=== PATIENT | female | born 1985 | race Caucasian/White ===

== ENCOUNTER 2021-08-20 14:09 | Emergency (ER) | payer BC, SELFPAY ==
[2021-08-20 14:17] VITALS: BP 114/74; PULSE 83; RESP 16; TEMP 37.1; O2SAT 100
--- NOTE | 2021-08-20 14:24 | ED.SKABFB ---
HPI - Skin/Abscess/Foreign Bdy General Chief complaint: Skin/Abscess/Foreign Body Stated complaint: Swelling Lt Hand Time Seen by Provider: 08/20/21 14:25 History of Present Illness HPI narrative: Anabel Mar is a 35 yo female with PMH ADHD, acne, who comes to express care with bee sting to L fifth metacarpal Wednesday which is swollen, tender. Patient is states that feels mildly warm and went to saw his shank sorter who said it could be cellulitic; presently looks a little red and mildly swollen Related Data Home Medications Medication Instructions Recorded Confirmed atomoxetine 80 mg capsule 1 cap PO DAILY 08/20/21 08/20/21 spironolactone 50 mg tablet 1 tablet PO DAILY 08/20/21 08/20/21 Allergies Allergy/AdvReac Type Severity Reaction Status Date / Time No Known Allergies Allergy Verified 08/20/21 14:13 Review of Systems Review of Systems: CONSTITUTIONAL: Denies fever, chills, sweats. EYES: Denies visual changes, redness, discharge. ENT: Denies rhinorrhea, congestion, sore throat, otalgia. CARDIOVASCULAR: Denies chest pain, palpitations, edema. RESPIRATORY: Denies dyspnea, wheezing, cough GASTROINTESTINAL: Denies abdominal pain, nausea, vomiting, diarrhea. GENITOURINARY: Denies dysuria, hematuria, abnormal discharge SKIN: Denies rash or itching. Left second finger mildly swollen mild erythema NEUROLOGIC: Denies numbness, or focal weakness. PSYCHIATRIC: Denies anxiety or depression. PMFSH Past Medical History Medical History Acne ADD (attention deficit disorder) Social History Social History (Updated 08/20/21 @ 14:36 by Dayanara Galeas CNP) Smoking status: Never smoker Comments At time of signature, I agree with nursing past medical, surgical, social and family history. There is no relevant family history pertinent to the presenting complaint. Exam Narrative: GENERAL: This is a well-nourished, well-developed patient, in mild distress. HEAD: normocephalic, atraumatic. EYES:. Sclera clear/white. Vision is grossly intact. EARS: External ears normal, Hearing grossly intact. NOSE: External nose normal without nasal discharge, nares without redness, no rhinorrhea. THROAT: Mucous membranes moist, NECK: Neck supple, non-tender CARDIOVASCULAR: Regular rate and rhythm without murmurs, gallops, or rubs. RESPIRATORY: Clear to auscultation. Breath sounds equal bilaterally. No wheezes, rales, or rhonchi. GASTROINTESTINAL: Not done SKIN: warm, intact with mild edema mild erythema of second finger left hand has good range of motion slightly warm to touch, no signs of infection NEURO: awake, alert, and oriented to person, place and time. There were no obvious focal neurologic abnormalities. Steady gait EXTREMITIES: Normal range of motion. BACK: Nontender without deformity Course Course Emergency Course: Patient comes with a wasp sting from Wednesday, left second finger is mildly swollen with some erythema Patient given 60 mg of prednisone; however take a Medrol Dosepak encouraged to continue Benadryl and famotidine to offset histamine reaction with and itchiness of lesion Follow-up with primary care Level of Care: Express Care Visit Vital Signs Vital signs: Vital Signs Temperature 98.8 F 08/20/21 14:17 Pulse Rate 83 08/20/21 14:17 Respiratory Rate 16 08/20/21 14:17 Blood Pressure 114/74 08/20/21 14:17 Pulse Oximetry 100 08/20/21 14:17 Oxygen Delivery Room Air 08/20/21 14:17 Temperature 98.8 F 08/20/21 14:17 Pulse Rate 83 08/20/21 14:17 Respiratory Rate 16 08/20/21 14:17 Blood Pressure 114/74 08/20/21 14:17 Pulse Oximetry 100 08/20/21 14:17 Oxygen Delivery Room Air 08/20/21 14:17 MDM - Skin/Abscess/Foreign Bdy Differential Diagnosis Differential diagnosis: Likely abscess of skin or subcutaneous tissue, urticaria, cellulitis, eczema, insect bites, contact dermatitis and other Critical Care Time
[2021-08-20] MEDS: predniSONE 20 MG TABLET 60 MG PO (14:37)
== END 2021-08-20 14:41 | disposition home or self-care (01) ==
PROVIDERS: Emergency Provider Nurse Practitioner; PCP Internal Medicine
DX: T63.461A Toxic effect of venom of wasps, accidental (unintentional), initial encounter (principal); F98.8 Other specified behavioral and emotional disorders with onset usually occurring in childhood and adolescence
CPT/HCPCS: 99213; G0463; J7512

== ENCOUNTER 2024-05-02 08:09 | Emergency (ER) | payer OTHER, SELFPAY ==
--- OUTSIDE RECORDS SUMMARY | 2024-05-02 08:19 | XMS_ITS | Clinical Summary ---
Author Organization [facility] Address [address] [place] [address] Care Team Providers Care Retort Loader Name Role Phone Eladia Bean Primary Care Provider [phone] Allergies No known active allergies Medications dextroamphetami ne-amphetamine XR (ADDERALL XR) 10 mg 24 hr capsule Take 1 capsule (10 mg total) by mouth every morning 30 capsule 5 Active dextroamphetami ne-amphetamine XR (ADDERALL XR) 10 mg 24 hr capsule Take 1 capsule (10 mg total) by mouth every morning 30 capsule 5 04/13/19 25 Discontinu ed(Reorder ) Active Problems Problem Noted Date Diagnosed Date Chronic left-sided low back pain without sciatic a 01/06/2024 Assessment & Plan (01/06/2024 1:30 PM LEASING PROPERTY MANAGER): Chronic. Currently uncontrolled and worsening over the last 6 weeks. Suspect macular pain possible muscular origin with now chronic pain. - Lumbar spine x-ray ordered, further management pending results - Recommend physical therapy, referral provided - Can take ibuprofen if needed - Continue stretching, heat Thyroid nodule 06/15/2023 Overview (06/15/2023): Per US 06/14/23: 0.89 cm - TI-RADS 4 Nodules 1.0 cm follow up at 1, 2, 3 and 5 years recommended, for nodules 1.5 cm FNA recommended. Assessment & Plan (01/06/2024 1:26 PM LEASING PROPERTY MANAGER): Per US 04/2023: 0.89 cm - TI-RADS 4 Nodules 1.0 cm follow up at 1, 2, 3 and 5 years recommended. Next US due 04/2023, order given. Annual physical exam 04/14/2023 Overview (04/14/2023): PMH:04/14/23 Last pap: 04/14/23 Last mammogram: 04/14/23 Last colonoscopy/cologuard: Last Hep C: Last tdap: 09/2015 Last Prevnar/pneumovax: Last Shingrix: Last eye exam: Assessment & Plan (04/14/2023 11:08 AM LEASING PROPERTY MANAGER): PMH:04/14/23 Last pap: 04/14/23 Last mammogram: 04/14/23 Last colonoscopy/cologuard: Last Hep C: Last tdap: 09/2015 Last Prevnar/pneumovax: Last Shingrix: Last eye exam: BMI 22.0-22.9, adult 04/14/2023 Assessment & Plan (03/15/2024 7:30 AM LEASING PROPERTY MANAGER): BMI Follow-up includes: education provided. Assessment & Plan (01/06/2024 1:27 PM LEASING PROPERTY MANAGER): Congratulated patient on lifestyle changes with increased exercise and diet, 20 lb weight loss. Assessment & Plan (04/14/2023 11:09 AM LEASING PROPERTY MANAGER): Exercise 5 days a week, 30 mins per day recommended. Eat a heart healthy diet consisting of good, healthy protein (eggs, nuts, peanut butter, chicken, fish, turkey, less pork/beef), lots of vegetables, less carbohydrates and less sugar. Attention deficit disorder (ADD) without hyperac tivity 09/21/2022 Assessment & Plan (03/15/2024 7:29 AM LEASING PROPERTY MANAGER): Chronic. Uncontrolled. Discussed options for treatment and we will start Adderall, risks and benefits discussed. Script sent for Adderall XR 10 mg every morning. She will update me in the next week on how her symptoms her doing. Discussed need to be seen every 6 months, 1 of these must be in person in the office. She will also complete a urine drug screen at her next visit and we will sign the controlled substance contract. Discussed that this medication is a controlled substance, do not lose it or give it to anyone else. Assessment & Plan (04/14/2023 11:08 AM LEASING PROPERTY MANAGER): Chronic. Stable without medication. Patient had nausea with Strattera though it did control her symptoms. Has never wanted to be on stimulant medication. Diagnosed by previous PCP, notes reviewed. Resolved Problems Problem Noted Date Diagnosed Date Resolved Date Generalized anxiety disorder 01/06/2017 04/14/2023 Encounters Date Type Department Care Team Description 03/15/2024 2:07 PM LEASING PROPERTY MANAGER - 03/15/2024 11:59 PM LEASING PROPERTY MANAGER Hospital Encounter [facility] Ultrasound [address] [place] [address] Thyroid nodule Discharge Disposition: Discharge to home or self care 03/15/2024 10:45 AM LEASING PROPERTY MANAGER Office Visit [facility] Obstetrical Gynecology [address] [place] [phone] Rodney Multani MD Abnormal uterine bleeding (AUB) 03/15/2024 7:30 AM LEASING PROPERTY MANAGER Telemedicine [facility] Family Medicine [address] [phone] Eladia Bean PA 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); BMI 22.0-22.9, adult from Last 3 Months Immunizations Immunization Administration Dates Next Due Influenza, Quadrivalent, Rec ombinant, Egg Free, Preservative Free, Intramuscular 12/17/2021,12/16/2020 Influenza, Quadrivalent, Spl it, Intramuscular 11/29/2017 Influenza, Quadrivalent, Spl it, Preservative Free, Intramuscular 11/07/2015 Influenza, Trivalent, Cell Culture-based MDCK, Preservative Free, Antibiotic Free, Intramuscular 12/06/2016 Influenza, Unspecified 11/29/2022(Deferred: Poly ent decision) Pfizer SARS-CoV-2 Monovalent Vaccination (12+ Yrs) PURPLE 03/27/2020,03/06/2020 Tdap 10/07/2015,04/15/2015,03/10/2013 Surgical History Surgery Date Site/Laterality Comments DILATION AND CURETTAGE OF UTERUS SECTION TONSILLECTOMY ABLATION 12/2018 Medical History Medical History Date Comments History of meningitis Generalized anxiety disorder 01/06/2017 Family History Medical History Relation Name Comments No Known Problems Brother Hypertension Father No Known Problems Maternal Grandfather No Known Problems Maternal Grandmother Depression Mother Bone cancer Paternal Grandfather Diabetes Paternal Grandmother Breast cancer Neg Hx Colon cancer Neg Hx Ovarian cancer Neg Hx Relation Name Status Comments Brother Alive Father Alive Maternal Grandfather Alive Maternal Grandmother Alive Mother Alive Paternal Grandfather Paternal Grandmother Social History Tobacco Use Types Packs/Day Years Used Date Smoking Tobacco: Never Smokeless Tobacco: Never Tobacco Cessation:Counseling Given: Not Answered Alcohol Use Standard Drinks/Week Comments Yes 0 (1 standard drink = 0.6 oz pur e alcohol) social Humiliation, Afraid, Rape, and Kick questionnair e Answer Date Recorded Fear of Current or Ex-Partner No Emotionally Abused No 06/21/2018 Physically Abused No 06/21/2018 Sexually Abused No 06/21/2018 AUDIT-C Answer Date Recorded Q1: How often do you have a drink containing alc ohol? Monthly or less 01/06/2024 Q2: How many drinks containi ng alcohol do you have on a typical day when you are drinking? 1 or 2 01/06/2024 Q3: How often do you have si x or more drinks on one occasion? Never 01/06/2024 PHQ-2 Answer Date Recorded PHQ-2 Total Score (If total score is 3 or more points, staff should administer the PHQ-9) 0 01/06/2024 [facility] - Occupational Stress Questionnaire Answer Date Recorded Feeling of Stress Only a little 06/21/2018 Exercise Vital Sign Answer Date Recorde d Days of Exercise per Week 2 days 2018 Minutes of Exercise per Session 60 min 06/21/2018 Comments No Sex and Gender Information Value Date Recorded Sex Assigned at Not on file Legal Sex Female 2:55 AM LEASING PROPERTY MANAGER Gender Identity Not on file Sexual Orientation Not on file 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 on file Not on file Not on fi le Obstetrics History Para Term AB IAB SAB Ectopic Multiple Livin g Live Births 4 3 3 1 1 3 3 Date Outcome GA Total Labor Labor/2nd/3rd Weight Sex Type Anes PTL Rachele A1 A5 Name Clin Term Term Term SAB Last Filed Vital Signs Vital Sign Reading Time Taken Comments Blood Pressure 110/60 03/15/2024 10:40 AM LEASING PROPERTY MANAGER Pulse 78 01/06/2024 12:33 PM LEASING PROPERTY MANAGER Temperature 36.8 C (98.2 F) 01/06/2024 12:33 PM LEASING PROPERTY MANAGER Respiratory Rate 16 01/06/2024 12:33 PM LEASING PROPERTY MANAGER Oxygen Saturation 98% 01/06/2024 12:33 PM LEASING PROPERTY MANAGER Inhaled Oxygen Concentration - - Weight 62.6 kg (138 lb) 03/15/2024 10:40 AM LEASING PROPERTY MANAGER Height 161.3 cm (5' 3.5 ) 03/15/2024 10:40 AM CS T Body Mass Index 24.06 03/15/2024 10:40 AM LEASING PROPERTY MANAGER Plan of Treatment Health Maintenance Due Date Last Done Comments Hepatitis C Screening 1986 Hepatitis B Screening 2004 Covid-19 Vaccine ( season) 2023 12/18/2020, 03/27/2020, 03/06/2020 Influenza Vaccine (#1) 2023 , 12/16/2020, 11/29/2017, Additional history exists Regular Well Visit/Exam 18-64 04/14/2024 04/14/2023, 12/17/2021, 12/16/2020, Additional history exists Depression Screening 01/05/2025 01/06/2024, 04/14/2023, 04/14/2023, Additional history exists DTaP/Tdap/Td Vaccine (4 - Td or Tdap) 10/06/2025 10/07/2015, 04/15/2015, 03/10/2013 Cervical Cancer Screening 04/14/2028 04/14/2023, HPV Vaccines Aged Out No longer eligi ble based on patient's age to complete this topic Pneumococcal vaccine <65 Aged Out No longer eligible based on patient's age to complete this topic Varicella Vaccines Discontinued Procedures Procedure Name Priority Date/Time Associated Diagnosis Comments US THYROID Schedule Routine, Read Routine (OP Routine) 03/15/2024 2:32 PM LEASING PROPERTY MANAGER Thyroid nodule PAP AND HPV, REFLEX TO HPV GENOTYPES Routine 04/14/2023 12:39 PM LEASING PROPERTY MANAGER Screening for cervical cancer from Last 3 Months or Most Recently Relevant to Health Maintenance Results * US Thyroid (03/15/2024 2:32 PM LEASING PROPERTY MANAGER) Anatomical Region Laterality Modality Head and Neck N/A Ultrasound 03/16/2024 7:45 AM LEASING PROPERTY MANAGER Narrative 03/16/2024 7:47 AM LEASING PROPERTY MANAGER EXAM DESCRIPTION: US THYROID REASON FOR STUDY: thryoid nodule TECHNIQUE: Ultrasound of the thyroid was performed with grayscale and color doppler. COMPARISON: Thyroid ultrasound 06/14/2023 FINDINGS: RIGHT: The right thyroid lobe measures 4.4 x 1.6 x 1.7 cm. The right thyroid lobe is normal in echotexture. LEFT: The left thyroid lobe measures 4.3 x 1.5 x 1.8 cm. The left thyroid lobe is normal in echotexture. Nodule 1: Solid hypoechoic nodule in the mid to lower thyroid lobe measuring 0.7 x 0.9 x 0.5 cm. Smooth margins. Wider than tall. No echogenic foci. This measured 0.8 x 0.9 x 0.4 cm on 06/14/2023. ISTHMUS: The isthmus measures 1.7 mm in AP dimension. The isthmus is normal in echotexture. VASCULARITY: Normal. OTHER: No other significant finding. IMPRESSION: TI-RADS 4 left thyroid nodule measuring 0.9 cm. This does not meet criteria for FNA or follow-up ACR TI-RADS Risk Category: 4 REFERENCE: According to the ACR Thyroid Imaging, Reporting and Data System (TI-RADS): White Paper of the ACR TI-RADS Committee Jun, 2016 recommendations regarding the management of thyroid nodules are as follows: 1. TI-RADS 1: Risk of malignancy <2%, no FNA or follow up required. 2. TI-RADS 2: Risk of malignancy <2%, no FNA or follow up required. 3. TI-RADS 3: Risk of malignancy 2%-5%. Nodules 1.5 cm or greater follow up at 1, 3 and 5 years recommended, for nodules 2.5 cm or greater FNA recommended. 4. TI-RADS 4: Risk of malignancy 5%-20% Nodules 1.0 cm or greater follow up at 1, 2, 3 and 5 years recommended, for nodules 1.5 cm or greater FNA recommended 5. TI-RADS 5: Risk of malignancy >20%. Nodules 0.5 cm or greater annual follow up for 5 years recommended, for nodules 1.0 cm or greater FNA recommended. The ACT TI-RADS committee recommends targeting no more than two nodules for FNA. If three or more nodules meet criteria for FNA, the two with the most suspicious appearance based on ACR TI-RADS points should be sampled. THIS IS AN ELECTRONICALLY VERIFIED FINAL REPORT 03/16/2024 7:47 AM - Electronically signed by Montrell Hope M.D. JR: Report ID: [id number] Reading Location: [place] [address] Procedure Note Montrell Hope MD - 03/16/2024 EXAM DESCRIPTION: US THYROID REASON FOR STUDY: thryoid nodule TECHNIQUE: Ultrasound of the thyroid was performed with grayscale andcolor doppler. COMPARISON: Thyroid ultrasound 06/14/2023 FINDINGS: RIGHT: The right thyroid lobe measures 4.4 x 1.6 x 1.7 cm.The right thyroid lobe is normal in echotexture. LEFT: The left thyroid lobe measures 4.3 x 1.5 x 1.8 cm. The leftthyroid lobe is normal in echotexture. Nodule 1: Solid hypoechoic nodule in the mid to lower thyroid lobemeasuring 0.7 x 0.9 x 0.5 cm. Smooth margins. Wider than tall. No echogenic foci. This measured 0.8 x 0.9 x 0.4 cm on 06/14/2023. ISTHMUS: The isthmus measures 1.7 mm in AP dimension. The isthmus isnormal in echotexture. VASCULARITY: Normal. OTHER: No other significant finding. IMPRESSION: TI-RADS 4 left thyroid nodule measuring 0.9 cm. This does notmeet criteria for FNA or follow-up ACR TI-RADS Risk Category: 4 REFERENCE: According to the ACR Thyroid Imaging, Reporting and Data System (TI-RADS): White Paper of the ACR TI-RADS Committee Jun, 2016recommendations regarding the management of thyroid nodules are as follows: 1. TI-RADS 1: Risk of malignancy <2%, no FNA or follow up required. 2. TI-RADS 2: Risk of malignancy <2%, no FNA or follow up required. 3. TI-RADS 3: Risk of malignancy 2%-5%. Nodules 1.5 cm or greater followup at 1, 3 and 5 years recommended, for nodules 2.5 cm or greater FNArecommended. 4. TI-RADS 4: Risk of malignancy 5%-20% Nodules 1.0 cm or greater followup at 1, 2, 3 and 5 years recommended, for nodules 1.5 cm or greater FNA recommended 5. TI-RADS 5: Risk of malignancy >20%. Nodules 0.5 cm or greater annual follow up for 5 years recommended, for nodules 1.0 cm or greater FNA recommended. The ACT TI-RADS committee recommends targeting no more than two nodulesfor FNA. If three or more nodules meet criteria for FNA, the two with themost suspicious appearance based on ACR TI-RADS points should be sampled. THIS IS AN ELECTRONICALLY VERIFIED FINAL REPORT 03/16/2024 7:47 AM - Electronically signed by Montrell Hope M.D., JR: Report ID: [id number] Reading Location: [place] [address] Eladia GALAVIZ IM US PROCEDURES Final R esult * Pap and HPV, reflex to HPV Genotypes (04/14/2023 12:39 PM LEASING PROPERTY MANAGER) CLINICAL INFORMATION: [facility] Comment:SCREENING LMP [facility] Comment:03/20/23 Previous Pap [facility] Comment:NONE GIVEN Prev. Bx [facility] Comment:NONE GIVEN SOURCE: [facility] Comment:Cervix, Endocervix Pap, specimen adequacy [facility] Comment: Satisfactory for evaluation. Endocervical/transformation zone component absent. HPV interp [facility] Comment: Cytology Results: Negative for intraepithelial lesion or malignancy. COMMENTS [facility] Comment: This Pap test has been evaluated with computer assisted technology. De Icer Finisher [facility] Comment: MMW, CT(ASCP) CT screening location: [place] [address] Administration LIZANDRO [place] [address] Comment [facility] Comment: EXPLANATORY NOTE: The Pap is a screening test for cervical cancer. It is not a diagnostic test and is subject to false negative and false positive results. It is most reliable when a satisfactory sample, regularly obtained, is submitted with relevant clinical findings and history, and when the Pap result is evaluated along with historic and current clinical information. Human papillomavirus DNA, High Risk E6/E7 Not Detected NOT DETECTED [facility] Comment: Not Detected High Risk HPV types (16,18,31,33,35,39,45,51,52, 56,58,59,66,68) were not detected. Other HPV types which cause anogenital lesions may be present. The significance of the other types of HPV in malignant processes has not been established. Methodology: Real Time PCR Thin prep 04/14/2023 12:3 9 PM LEASING PROPERTY MANAGER 04/15/2023 4:00 AM LEASING PROPERTY MANAGER Eladia GALAVIZ LAB CYTOLOGY ORDERABLES F inal Result [facility] [address] [address] [place]ZANDRO [place] [phone] Sima [place] [address] [facility] [place] [phone] from Last 3 Months or Most Recently Relevant to Health Maintenance Insurance [facility] PPO Care Teams Retort Loader Relationship Specialty Start Date End Date Eladia Bean PA [address] [place] [address] PCP - General Family Medicine 04/14/23
--- OUTSIDE RECORDS SUMMARY | 2024-05-02 08:19 | XMS_ITS | Clinical Summary ---
Author Organization [facility] Address [address] [place] [id number] Care Team Providers Care Nursery Helper Name Role Phone Unavailable Primary Care Provider Unavailabl e Social History Tobacco Use Types Packs/Day Years Used Date Smoking Tobacco: Never Assessed Comments Unknown Sex and Gender Information Value Date Recorded Sex Assigned at Not on file Legal Sex Female 8:00 PM CDT Gender Identity Not on file Sexual Orientation Not on file Plan of Treatment Health Maintenance Due Date Last Done Comments Cervical Cancer Screening Pa p Smear (Age 30 to 64) Every 3 Years 1986 Annual Physical 1989 Hepatitis C 2004 DTaP, Tdap and Td Vaccines ( 1 - Tdap) 2005 Hepatitis B Vaccines (1 of 3 - 19+ 3-dose series) 2005 Cervical Cancer Screening Pa p with HPV Testing (Age 30 to 64) Every 5 Years 2016 Cervical Cancer Screening with HPV 2016 COVID-19 Vaccine (2023-2 5 season) 2023 Influenza Adult (#1) 2023 HPV Vaccines Aged Out No longer eligi ble based on patient's age to complete this topic Meningococcal B Vaccine Aged Out No l onger eligible based on patient's age to complete this topic Meningococcal Vaccine Aged Out No vivek jonathan eligible based on patient's age to complete this topic Pneumococcal Vaccine: Pediat rics (0 to 5 Years) and At-Risk Patients (6 to 64 Years) Aged Out No longer eligible b ased on patient's age to complete this topic RSV Immunizations Under 20 Months Aged Out No longer eligible based on patient's age to complete this topic
--- OUTSIDE RECORDS SUMMARY | 2024-05-02 08:19 | XMS_ITS | Clinical Summary ---
Author Organization [facility] Address [address] [place] [address] Care Team Providers Care Silk Soaker Name Role Phone Unavailable Primary Care Provider Unavailabl e Source Comments [facility],non-owned Affiliates and Associated Physician Practices is amultiple site organization consisting of ambulatory clinics and hospital sitesin [place], [place], [place] and [place]. This disclosure is being madepursuant to the Care Everywhere program and may not contain all information available regarding this patient. Last updated 17.[facility] Social History Tobacco Use Types Packs/Day Years Used Date Smoking Tobacco: Never Assessed Sex and Gender Information Value Date Recorded Sex Assigned at Not on file Gender Identity Not on file Sexual Orientation Not on file Plan of Treatment Health Maintenance Due Date Last Done Comments HIV SCREENING 2001 HEPATITIS C SCREENING 09/20/2004 DTAP/TDAP/TD VACCINES (1 - Tdap) 2005 HEPATITIS B VACCINE (1 of 3 - 19+ 3-dose series) 2005 COVID-19 VACCINE ( - 2023-2 5 season) 2023 INFLUENZA VACCINE (#1) 2023 DEPRESSION SCREENING 03/01/2024 ZOSTER VACCINE (1 of 2) 2036 HIB VACCINE Aged Out No longer eligi ble based on patient's age to complete this topic HPV VACCINE Aged Out No longer eligi ble based on patient's age to complete this topic MENINGOCOCCAL (Group B) VACCINE Aged Out No longer eligible based on patient's age to complete this topic MENINGOCOCCAL VACCINE Aged Out No vivek jonathan eligible based on patient's age to complete this topic PNEUMOCOCCAL VACCINE Aged Out No long er eligible based on patient's age to complete this topic
--- OUTSIDE RECORDS SUMMARY | 2024-05-02 08:19 | XMS_ITS | Patient Health Summary ---
Author Organization [facility] [employer] Address [address] [place] [address] Care Team Providers Care Shoe Patternmaker Name Role Phone Unavailable Primary Care Provider Unavailabl e Note from [facility],non-owned Affiliates and Associated Physician Practices is amultiple site organization consisting of ambulatory clinics and hospital sitesin [place], [place], [place] and [place]. This disclosure is being madepursuant to the Care Everywhere program and may not contain all information available regarding this patient. Last updated 17.[facility] [employer] Social History Tobacco Use Types Packs/Day Years Used Date Smoking Tobacco: Never Assessed Sex and Gender Information Value Date Recorded Sex Assigned at Not on file Gender Identity Not on file Sexual Orientation Not on file Procedures * GROSS + MICRO EXAM (ILL)(Performed 07/25/2015) Performed for Lesion of breast * GROSS + MICRO EXAM(Performed 01/07/2012) * GROSS + MICRO EXAM(Performed 03/05/2008) * GROSS + MICRO EXAM(Performed 02/17/2001) Results * GROSS + MICRO EXAM (ILL) (07/25/2015 10:00 AM CDT) Case Report Surgical Pathology Report Case: [id number] Authorizing Provider: Batool Marques MD Collected: 07/25/2015 10:00 AM Ordering Location: [facility] Received: 07/25/2015 02:21 PM Pathologist: Marlon Enriquez MD Specimen: Nevus, mole right breast 07/26/2015 9:57 AM CDT [facility] Final Diagnosis SKIN, RIGHT BREAST, EXCISION: - POLYPOID INTRADERMAL NEVUS WITHOUT ATYPIA. - BENIGN MELANOCYTES FOCALLY EXTEND TO THE INKED BASE. NATASHA/bimal 07/26/2015 9:57 AM CDT [facility] Clinical History Collection Date: 07/25/2015 Relevant Clinical Information: Mole right breast Operative Procedure: Removal of mole right breast at 9 o'clock site Specimen Submitted: Right breast mole Physician: Batool Marques MD 07/26/2015 9:57 AM CDT [facility] Gross Description Received in formalin labeled Anabel Mar and right breast at 9 o'clock , is a small fragment of perez skin that is 0.4 x 0.3 x 0.2 cm. The flat excision base is marked blue. This is bisected and submitted in a single cassette. NATASHA/jzjose 07/26/2015 9:57 AM CDT [facility] Microscopic Description Microscopic examination is performed and substantiates the above diagnosis. 07/26/2015 9:57 AM CDT [facility] Testing Performed By Performed by [facility] [place] [address] 07/26/2015 9:57 AM CDT [facility] Pathology/Cytolo gy NEVUS AND/OR MELANOMA / Unknown 07/25/2015 10:00 AM CDT 07/25/2015 2:21 PM CDT Batool Marques MD LAB - PATHOLOGY/CYTO LOGY ORDERABLES Performing Organization Address City/State/[facility] Co de Phone Number [facility] [address] [place], [place] [id number] [place] [address] * GROSS + MICRO EXAM (01/07/2012 12:00 PM BRAND COMMUNICATIONS MANAGER) Only the most recent of3 resultswithin the time period is included. Result CASE NUMBER [id number] Comment: ORDERING PHYSICIAN BATOOL MARQUES SPECIMEN TYPE Mole-Inferior Abdomen Date of Surgery 01/08/2012 4584 Surgeon BATOOL MARQUES M.D. SPECIMEN SOURCE A. Inferior abdominal mole B. Lateral abdominal mole c. Mole - superior *Pre Op Dx Skin lesion GROSS DESCRIPTION A. Received in formalin labeled inferior abdominal mole is a specimen consisting of a perez-brown skin specimen 6 mm across and excised to a depth of 6 mm. Entirely submitted. B. Received in formalin labeled lateral abdominal mold is a specimen consisting of a piece of perez-brown skin 7 mm in maximum dimension and excised to a depth of 5 mm. Entirely submitted. C. Received in formalin labeled superior abdominal mole is a specimen consisting of a piece of perez-brown skin 8 mm in maximum dimension excised to a depth of 5 mm. Entirely submitted. RBS/[facility] Grossed by GOMEZ PAGAN M.D. *MICROSCOPIC EXAM A. Sections show an area of increased pigmentation mainly in the basal layer. Rare junctional nests of bland nevus cells are seen. B. Sections show multiple nests of benign nevus cells at the junction and in the dermis. There is no host response, and satisfactory maturation is seen. C. Sections show features quite similar to those described in B. RBS/scs Read by GOMEZ PAGAN M.D. DIAGNOSIS A. SKIN INFERIOR ABDOMEN - JUNCTIONAL NEVUS B. SKIN LATERAL ABDOMINAL - COMPOUND NEVUS C. SKIN SUPERIOR ABDOMINAL - COMPOUND NEVUS RBS/scs RELEASED BY GOMEZ PAGAN MD MISCELLANEOUS SAMPLES / Unknown 01/07/2012 12:00 PM BRAND COMMUNICATIONS MANAGER 01/10/2012 2:26 PM BRAND COMMUNICATIONS MANAGER Historical Provider LAB - PATHOLOGY/C YTOLOGY ORDERABLES
--- OUTSIDE RECORDS SUMMARY | 2024-05-02 08:19 | XMS_ITS | Clinical Summary ---
Author Organization [facility] Address [address] [place] [address] Phone Care Team Providers Care Tentmaker Name Role Phone Dionicio Mckeon MD Primary Care Provider [phone] Allergies No known active allergies Medications progesterone micronized (Prometrium) 200 mg Capsule Take 1 Capsule (200 mg) by mouth daily. 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, antepartum 11/12/2015 Supervision of other normal , antepartu m 05/09/2015 Overview (12/02/2015): O+/I/-/-, HIV neg GCT: 84 GBS neg Previous section complicating 09/22/2012 contractions Resolved Problems Problem Noted Date Diagnosed Date Resolved Date 02/06/2014 04/30/2015 Overview (02/06/2014): O positive, HIV (neg), Rub (Imm), HepB (NR), RPR (NR), TSH (nl), urine culture neg, GC/CT neg c-sx 3.7, PPH 350cc, Metherg ine IM x 1, PO x 2, pre-op Hgb 12.5 05/05/2013 04/30/2015 state, incidental 09/22/2012 0 04/30/2015 Routine gynecological examination 09/22/2012 04/30/2015 Immunizations Immunization Administration Dates Next Due (ADACEL/BOOSTRIX)(10 YR UP) TDAP VACCINE, 0.5ML, IM 10/07/2015,03/10/2013 INFLUENZA VACCINE QUADRIVALENT 3 YR UP PF IM 09/2015 Family History Medical History Relation Name Comments Healthy Daughter Jackie Diabetes Maternal Grandmother Arthritis-osteo Other GRANDMOTHER Breast Cancer Other GREAT AUNT Cancer Other GRANDFATHER Heart Failure Other Hypertension Other Ovarian Cancer Other great aunt Diabetes Paternal Grandmother Colon Cancer Neg Hx Relation Name Status Comments Daughter Jackie Alive Father Alive Maternal Grandmother Mother Alive Other Paternal Grandmother Social History Tobacco Use Types Packs/Day Years Used Date Smoking Tobacco: Never Smokeless Tobacco: Never Tobacco Cessation:Counseling Given: No Alcohol Use Standard Drinks/Week Comments No 0 (1 standard drink = 0.6 oz pur e alcohol) Comments No Sex and Gender Information Value Date Recorded Sex Assigned at Not on file Legal Sex Female 10:58 AM CDT Gender Identity Not on file Sexual Orientation Not on file Occupation Industry Job Start Date Job End Date Not on file Not on file Not on file Not on file Last Filed Vital Signs Vital Sign Reading Time Taken Comments Blood Pressure 112/77 01/16/2019 1:38 PM FLIGHT MANAGER Pulse 69 12/20/2015 7:30 AM CDT Temperature 36.4 C (97.5 F) 12/20/2015 7:30 AM CDT Respiratory Rate 18 12/20/2015 7:30 AM CDT Oxygen Saturation 100% 12/19/2015 7:24 PM CDT Inhaled Oxygen Concentration - - Weight 71.7 kg (158 lb) 01/16/2019 1:38 PM FLIGHT MANAGER Height 160 cm (5' 3 ) 01/16/2019 1:38 PM FLIGHT MANAGER Body Mass Index 27.99 01/16/2019 1:38 PM FLIGHT MANAGER Plan of Treatment Health Maintenance Due Date Last Done Comments HEPATITIS B VACCINES (1 of 3 - 19+ 3-dose series) 2005 CERVICAL CANCER SCREENING 12/17/20172014, 01/12/2014, 09/22/2012 INFLUENZA VACCINE (#1) 2023 2, 12/16/2020, 11/29/2017, Additional history exists COVID-19 Vaccine (2023- season) 2023 03/27/2020, 03/06/2020 Preventative Visit- Commercial 03/01/2024 04/14/2023, 12/17/2021, 12/16/2020, Additional history exists DTAP/TDAP/TD VACCINES (4 - Td or Tdap) 10/06/2025 10/07/2015, 04/15/2015, 03/10/2013 HPV VACCINES Aged Out No longer eligi ble based on patient's age to complete this topic Medical Devices Implanted Type Area Analog Circuit Designer Device Identifier Shelf Expiration Date Model / Serial / Lot Barrier Seprafilm 5x6in 4301-02 - [id number] Implanted:Qty : 1 on 05/05/2013 by Mirela Hernandez MD at [facility] [employer] Barrier N/A: Abdomen GENZYME- BIOSURG 09/29/2014 [id number] / / [id number] Barrier Seprafilm 5x6in [id number] - [id number] Implanted:Qty : 1 on 12/17/2015 by Dionicio Mckeon MD at [facility] [employer] Barrier N/A: Abdomen [employer] [id number] 01/28/2018 [id number] / / [id number] Procedures Procedure Name Priority Date/Time Associated Diagnosis Comments CERV/VAG CYTO SCREEN PAP RLFX HPV Routine 12/17/2014 2:46 PM CDT Well woman exam with routine gynecological exam from Last 3 Months or Most Recently Relevant to Health Maintenance Results * CERV/VAG CYTOPATH, THIN PREP IMAGR RFLX HPV (CP) (12/17/2014 2:46 PM CDT) Pathologist [facility] CLINICAL INFORMATION SEE COMMENT 12/20/2014 9:25 AM CDT [facility] Comment:Information not prov ided LAST MENSTRUAL PERIOD SEE COMMENT 12/20/2014 9:25 AM CDT [facility] Comment:Information not prov ided PREV PAP: SEE COMMENT 12/20/2014 9:25 AM CDT [facility] Comment:01/12/14 NIL PREV BX: SEE COMMENT 12/20/2014 9:25 AM CDT [facility] Comment:Information not prov ided SOURCE Endocervix 12/20/2014 9:25 AM CDT [facility] ADEQUACY: SEE COMMENT 12/20/2014 9:25 AM CDT [facility] Comment: Satisfactory for evaluation. Endocervical/transformation zone component present. Age and/or menstrual status not provided INTERPRETATION SEE COMMENT 12/20/2014 9:25 AM CDT [facility] Comment:Negative for intraep ithelial lesion or malignancy. COMMENT SEE COMMENT 12/20/2014 9:25 AM CDT [facility] Comment: This Pap test has been evaluated with computer assisted technology. COMPENSATION AND HRIS ANALYST: SEE COMMENT 12/20/2014 9:25 AM CDT [facility] Comment: BKA, CT(ASCP) CT screening location: [place] [address] [address] [place] [address] Endocervical Collection / Unknown 12/17/2014 2:46 PM CDT 12/17/2014 5:24 PM CDT Narrative [facility] - 12/20/2014 9:25 AM CDT Performing Organization Information: Site ID: Name: [facility] Address: [facility] [address] [place] [address] Director: Izabela Slater MD us Dionicio Mckeon MD PATHOLOGY/CYTOLOGY ORDERABLES Final Result [facility] [address] [address] [place] [address], from Last 3 Months or Most Recently Relevant to Health Maintenance Insurance [facility] OPEN ACCESS O Advance Directives For more information, please contact: [phone] * Full Code (Latest Code Status on File) Date Activated Date Inactivated Comments 12/17/2015 11:29 AM 12/20/2015 3:58 PM * Full Code Date Activated Date Inactivated Comments 12/17/2015 6:29 AM 12/17/2015 11:29 AM * Full Code Date Activated Date Inactivated Comments 11/12/2015 6:12 PM 11/12/2015 11:14 PM * Full Code Date Activated Date Inactivated Comments 02/27/2014 11:48 AM 02/27/2014 4:07 PM * Full Code Date Activated Date Inactivated Comments 05/05/2013 1:51 PM 05/08/2013 1:59 PM Care Teams Tentmaker Relationship Specialty Start Date End Date Dionicio Mckeon MD [address] [place] [phone] PCP - General Obstetrics and Gynecology 10/16/12
--- OUTSIDE RECORDS SUMMARY | 2024-05-02 08:19 | XMS_ITS | Referral Summary ---
Author Organization [facility] Address [address] [place] [place] [address] Care Team Providers Care Paper Cone Machine Operator Name Role Phone Eladia Bean Primary Care Provider [phone] Encounters Date Type Department Care Team Description 03/15/2024 2:07 PM GEOTHERMAL INSTALLER - 03/15/2024 11:59 PM GEOTHERMAL INSTALLER Hospital Encounter [facility] Ultrasound [address] [place] [address] Thyroid nodule Discharge Disposition: Discharge to home or self care 03/15/2024 7:30 AM GEOTHERMAL INSTALLER Telemedicine [facility] Family Medicine [address] [phone] Eladia Bean PA 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); BMI 22.0-22.9, adult 03/15/2024 10:45 AM GEOTHERMAL INSTALLER Office Visit [facility] Obstetrical Gynecology [address] [place] [phone] Rodney Multani MD Abnormal uterine bleeding (AUB) from Last 3 Months Allergies No known active allergies Medications dextroamphetami ne-amphetamine XR (ADDERALL XR) 10 mg 24 hr capsule Take 1 capsule (10 mg total) by mouth every morning 30 capsule Active dextroamphetami ne-amphetamine XR (ADDERALL XR) 10 mg 24 hr capsule Take 1 capsule (10 mg total) by mouth every morning 30 capsule 04/13/19 25 Discontinu ed(Reorder ) Active Problems Problem Noted Date Diagnosed Date Chronic left-sided low back pain without sciatic a 01/06/2024 Assessment & Plan (01/06/2024 1:30 PM GEOTHERMAL INSTALLER): Chronic. Currently uncontrolled and worsening over the [...] recommended. Assessment & Plan (01/06/2024 1:26 PM GEOTHERMAL INSTALLER): Per US 04/2023: 0.89 cm - TI-RADS 4 Nodules 1.0 cm follow up at 1, 2, 3 and 5 years recommended. Next US due 04/2023, order given. Annual physical exam 04/14/2023 Overview (04/14/2023): PMH:04/14/23 Last pap: 04/14/23 Last mammogram: 04/14/23 Last colonoscopy/cologuard: Last Hep C: Last tdap: 09/2015 Last Prevnar/pneumovax: Last Shingrix: Last eye exam: Assessment & Plan (04/14/2023 11:08 AM GEOTHERMAL INSTALLER): PMH:04/14/23 Last pap: 04/14/23 Last mammogram: 04/14/23 Last colonoscopy/cologuard: Last Hep C: Last tdap: 09/2015 Last Prevnar/pneumovax: Last Shingrix: Last eye exam: BMI 22.0-22.9, adult 04/14/2023 Assessment & Plan (03/15/2024 7:30 AM GEOTHERMAL INSTALLER): BMI Follow-up includes: education provided. Assessment & Plan (01/06/2024 1:27 PM GEOTHERMAL INSTALLER): Congratulated patient on lifestyle changes with increased exercise and diet, 20 lb weight loss. Assessment & Plan (04/14/2023 11:09 AM GEOTHERMAL INSTALLER): Exercise 5 days a week, 30 mins per day recommended. Eat a heart healthy diet consisting of good, healthy protein (eggs, nuts, peanut butter, chicken, fish, turkey, less pork/beef), lots of vegetables, less carbohydrates and less sugar. Attention deficit disorder (ADD) without hyperac tivity 09/21/2022 Assessment & Plan (03/15/2024 7:29 AM GEOTHERMAL INSTALLER): Chronic. Uncontrolled. Discussed options for treatment and [...] else. Assessment & Plan (04/14/2023 11:08 AM GEOTHERMAL INSTALLER): Chronic. Stable without medication. Patient had nausea with Strattera though it did control her symptoms. Has never wanted to be on stimulant medication. Diagnosed by previous PCP, notes reviewed. Resolved Problems Problem Noted Date Diagnosed Date Resolved Date Generalized anxiety disorder 01/06/2017 04/14/2023 Immunizations Immunization Administration Dates Next Due Influenza, Quadrivalent, Rec ombinant, Egg Free, Preservative Free, Intramuscular 12/17/2021,12/16/2020 Influenza, Quadrivalent, Spl it, Intramuscular 11/29/2017 Influenza, Quadrivalent, Spl it, Preservative Free, Intramuscular 11/07/2015 Influenza, Trivalent, Cell Culture-based MDCK, Preservative Free, Antibiotic Free, Intramuscular 12/06/2016 Influenza, Unspecified 11/29/2022(Deferred: Poly ent decision) Pfizer SARS-CoV-2 Monovalent Vaccination (12+ Yrs) PURPLE 03/27/2020,03/06/2020 Tdap 10/07/2015,04/15/2015,03/10/2013 Social History Tobacco Use Types Packs/Day Years [...] staff should administer the PHQ-9) 0 01/06/2024 [facility] - Occupational Stress Questionnaire Answer Date Recorded Feeling of Stress Only a little 06/21/2018 Exercise Vital Sign Answer Date Recorde d Days of Exercise per Week 2 days 2018 Minutes of Exercise per Session 60 min 06/21/2018 Comments No Sex and Gender Information Value Date Recorded Sex Assigned at Not on file Legal Sex Female 2:55 AM GEOTHERMAL INSTALLER Gender Identity Not on file Sexual Orientation Not on file 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 on file Not on file Not on fi le Last Filed Vital Signs Vital Sign Reading Time Taken Comments Blood Pressure 110/60 03/15/2024 10:40 AM GEOTHERMAL INSTALLER Pulse 78 01/06/2024 12:33 PM GEOTHERMAL INSTALLER Temperature 36.8 C (98.2 F) 01/06/2024 12:33 PM GEOTHERMAL INSTALLER Respiratory Rate 16 01/06/2024 12:33 PM GEOTHERMAL INSTALLER Oxygen Saturation 98% 01/06/2024 12:33 PM GEOTHERMAL INSTALLER Inhaled Oxygen Concentration - - Weight 62.6 kg (138 lb) 03/15/2024 10:40 AM GEOTHERMAL INSTALLER Height 161.3 cm (5' 3.5 ) 03/15/2024 10:40 AM CS T Body Mass Index 24.06 03/15/2024 10:40 AM GEOTHERMAL INSTALLER Plan of Treatment Not on file Procedures Procedure Name Priority Date/Time Associated Diagnosis Comments US THYROID Schedule Routine, Read Routine (OP Routine) 03/15/2024 2:32 PM GEOTHERMAL INSTALLER Thyroid nodule PAP AND HPV, REFLEX TO HPV GENOTYPES Routine 04/14/2023 12:39 PM GEOTHERMAL INSTALLER Screening for cervical cancer from Last 3 Months or Most Recently Relevant to Health Maintenance Results * US Thyroid (03/15/2024 2:32 PM GEOTHERMAL INSTALLER) Anatomical Region Laterality Modality Head and Neck N/A Ultrasound 03/16/2024 7:45 AM GEOTHERMAL INSTALLER Narrative 03/16/2024 7:47 AM GEOTHERMAL INSTALLER EXAM DESCRIPTION: US THYROID REASON FOR STUDY: [...] by Montrell Hope M.D. JR: Report ID: [id number] Reading Location: [place] [address] Procedure Note Montrell Hope MD - 03/16/2024 [...] by Montrell Hope M.D. JR: Report ID: [id number] Reading Location: [place] [address] us Eladia GALAVIZ IMG US PROCEDURES Final R esult * Pap and HPV, reflex to HPV Genotypes (04/14/2023 12:39 PM GEOTHERMAL INSTALLER) CLINICAL INFORMATION: [facility] Comment:SCREENING LMP [facility] Comment:03/20/23 Previous Pap [facility] Comment:NONE GIVEN Prev. Bx [facility] Comment:NONE GIVEN SOURCE: [facility] Comment:Cervix, Endocervix Pap, specimen adequacy [facility] Comment: Satisfactory for evaluation. Endocervical/transformation zone component absent. HPV interp [facility] Comment: Cytology Results: Negative for intraepithelial lesion or malignancy. COMMENTS [facility] Comment: This Pap test has been evaluated with computer assisted technology. Mechanical Shop Laborer Que [facility] Comment: MMW, CT(ASCP) CT screening location: [place] [address] [address] [place] [address] Comment [facility] Comment: EXPLANATORY NOTE: The Pap is a [...] PCR Thin prep 04/14/2023 12:3 9 PM GEOTHERMAL INSTALLER 04/15/2023 4:00 AM GEOTHERMAL INSTALLER us Eladia GALAVIZ LAB CYTOLOGY ORDERABLES F inal Result [facility] [address] [address] [place] [phone] [place] [address] [place] [address] from Last 3 Months or Most Recently Relevant to Health Maintenance Insurance [facility] Care Teams Paper Cone Machine Operator Relationship Specialty Start Date End Date Eladia Bean PA [address] [place] [address] PCP - General Family Medicine 04/14/23
--- OUTSIDE RECORDS SUMMARY | 2024-05-02 08:19 | XMS_ITS | Referral Summary ---
Author Organization [facility] Address [address] [place] [address] Care Team Providers Care Inspector Plating Name Role Phone Unavailable Primary Care Provider Unavailabl e Source Comments [facility],non-owned Affiliates and Associated Physician Practices is amultiple site organization consisting of ambulatory clinics and hospital sitesin [place], [place], [place] and [place]. This disclosure is being madepursuant to the Care Everywhere program and may not contain all information available regarding this patient. Last updated 17.[facility] [employer] Social History Tobacco Use Types Packs/Day Years Used Date Smoking Tobacco: Never Assessed Sex and Gender Information Value Date Recorded Sex Assigned at Not on file Gender Identity Not on file Sexual Orientation Not on file Plan of Treatment Not on file
--- NOTE | 2024-05-02 08:23 | ED.URI ---
HPI - URI/Sore Throat General Chief Complaint: Upper Respiratory Infection Stated Complaint: Cough / congestion Source: patient Mode of arrival: ambulatory Limitations: no limitations History of Present Illness HPI Narrative: 38 y/o female presented for c/o cough, nasal drainage and sinus pressure, and fatigue x2 weeks following covid. Cough is worse at night. Denies sob, wheezing, n/v/d/f/c. Taking multi-symptom Mucinex. Related Data Home Medications ?Medication ?Instructions ?Recorded ?Confirmed ?Last Taken ?Type atomoxetine 80 mg capsule 1 cap PO DAILY 08/20/21 05/02/24 Unknown History Allergies Allergy/AdvReac Type Severity Reaction Status Date / Time No Known Allergies Allergy Verified 05/02/24 08:32 Review of Systems Review of Systems: CONSTITUTIONAL: Reports fatigue Denies body aches, fever, chills, or sweats. EYES: Denies visual changes, redness, or discharge. ENT: Reports rhinorrhea, congestion, denies sore throat, or otalgia. CARDIOVASCULAR: Denies chest pain, palpitations, or edema. RESPIRATORY: Reports cough, denies sob, wheezing. GASTROINTESTINAL: Denies abdominal pain, nausea, vomiting, or diarrhea. SKIN: Denies rash, itching, or wounds. NEUROLOGIC: Denies headache, numbness, tingling, or weakness. All systems reviewed & are unremarkable except as noted in HPI and below PMFSH Past Medical History Medical History Acne ADD (attention deficit disorder) Social History Social History Smoking status: Never smoker Comments At time of signature, I have reviewed and agree with nursing past medical, surgical, social and family history unless otherwise noted. Please see nursing chart for further information. There is no relevant family history pertinent to the presenting complaint Exam Narrative: GENERAL: Well-appearing, in no acute distress. EYES: EOMI. No redness or drainage. Conjunctivae normal. ENT: Mucous membranes pink and moist. Congestion and rhinorrhea. TMs normal bilaterally. Throat normal. Uvula midline. NECK: Normal AROM. Supple. CHEST: No respiratory distress. Lungs clear to all craig. HEART: Regular rate and rhythm. ABDOMEN: Soft, nontender, nondistended, normal active bowel sounds. SKIN: Warm, dry, no rash. Capillary refill normal. Normal skin turgor. NEURO: Alert and oriented x3. Gait steady. PSYCH: Normal affect. Course Course Emergency Course: Patient is aware of diagnosis, understands and agrees to treatment plan. Anticipatory guidance given. Patient agrees to follow-up as directed and is aware of reasons to seek care at the emergency department. Portions of this record may have been created with voice recognition software Level of Care: Express Care Visit Vital Signs Vital signs: Vital Signs Temperature 98.0 F 05/02/24 08:31 Pulse Rate 82 05/02/24 08:31 Respiratory Rate 18 05/02/24 08:31 Blood Pressure 108/69 05/02/24 08:31 Pulse Oximetry 100 05/02/24 08:31 Oxygen Delivery Room Air 05/02/24 08:31 Temperature 98.0 F 05/02/24 08:31 Pulse Rate 82 05/02/24 08:31 Respiratory Rate 18 05/02/24 08:31 Blood Pressure 108/69 05/02/24 08:31 Pulse Oximetry 100 05/02/24 08:31 Oxygen Delivery Room Air 05/02/24 08:31 MDM - URI/Sore Throat MDM Narrative Medical decision making narrative: Discussed physical exam findings. Advised supportive measures and signs/symptoms to go to the ER. Pt is appropriate for outpt treatment and f/u. Differential Diagnosis Differential diagnosis: Likely upper respiratory infection, sinusitis, viral infection, bronchitis and other Discharge Plan Discharge Clinical Impression: Sinusitis Patient Disposition: Home, Self-Care Condition: Stable Instructions: Antibiotic Form, Sinusitis (ED) Additional Instructions: Take antibiotic as directed Recommendations: Flonase spray and Zyrtec (or Claritin/Sarah) over the counter Cough syrup may cause drowsiness; avoid driving or take it at night time. Tylenol 1000mg every 8 hours as needed for pain Symptomatic treatment includes: rest, fluids, and increase humidity of the air at home. Follow up with your primary care provider in 1 week. Go to the ER for worsening symptoms or concerns. Patient Language: [place] Prescriptions: New methylprednisolone [Medrol (Matt)] 4 mg tablets,dose pack See Rx Instructions .ROUTE .COMPLEX Qty: 21 0RF Rx Instructions: orally per package directions amoxicillin-pot clavulanate 875-125 mg tablet 1 tablet PO Q12H 7 Days Qty: 14 0RF benzonatate 200 mg capsule 200 mg PO TID PRN (Reason: cough) Qty: 20 0RF No Action atomoxetine 80 mg capsule 1 cap PO DAILY Follow-up/Referrals: Vikas,Eladia [Other] Time of Disposition: 08:48
[2024-05-02 08:31] VITALS: BP 108/69; PULSE 82; RESP 18; TEMP 36.7; O2SAT 100
== END 2024-05-02 09:06 | disposition home or self-care (01) ==
PROVIDERS: Emergency Provider Nurse Practitioner Family
DX: J32.9 Chronic sinusitis, unspecified (principal); F98.8 Other specified behavioral and emotional disorders with onset usually occurring in childhood and adolescence
CPT/HCPCS: 99213; G0463